=== PATIENT | female | born 1955 | race Caucasian/White ===

== ENCOUNTER → 2024-10-24 | Outpatient (CLI) | payer MEDICARE, OTHER ==
--- NOTE | 2024-10-24 16:43 | MR ---
EXAMINATION TYPE: MR knee LT wo con DATE OF EXAM: 10/24/2024 COMPARISON: NONE HISTORY: Left knee swelling since fall 03-13-2022. Internal derangement. TECHNIQUE: Multiplanar, multisequence images of the knee is performed without IV contrast. FINDINGS: MEDIAL MENISCUS: Anterior and posterior horns are intact without tear. LATERAL MENISCUS: Anterior and posterior horns are intact without tear. CRUCIATE LIGAMENTS: The anterior and posterior cruciate ligaments are intact and unremarkable. COLLATERAL LIGAMENTS: The medial collateral ligament and lateral collateral ligament complex are inta ct. Increased signal in the lateral collateral ligament complex is present. EXTENSOR MECHANISM: Visualized quadriceps and patellar tendons are intact. EFFUSION: Moderate to large size suprapatellar joint effusion. POPLITEAL CYST: No popliteal/man cyst. TRICOMPARTMENT SPACES: Severe patellofemoral joint narrowing with mild to moderate spurring. Lateral positioning of the patella. Medial retinaculum appears intact. 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 Mild to moderate narrowing and spurring medial and lateral tibiofemoral compartment. CARTILAGE: Significant areas of full-thickness cartilaginous loss. BONE MARROW SIGNAL: No focal abnormal marrow signal is appreciated. OTHER: Focal subcutaneous edema anterior superficial prepatellar level extends laterally. IMPRESSION: 1. Severe patellofemoral joint arthropathy. 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 2. There is chronic injury to the lateral collateral ligament complex. 3. There is moderate to large-sized suprapatellar joint effusion. 4. No meniscal tear is seen. [facility], , 10/24/2024 4:41 PM
== END | disposition home or self-care (01) ==
LOC: RADMRIMAIN 14:32
PROVIDERS: ATTEND Emergency Medicine
DX: S83.012A Lateral subluxation of left patella, initial encounter (principal); M23.92 Unspecified internal derangement of left knee; M25.462 Effusion, left knee; M22.8X2 Other disorders of patella, left knee